=== PATIENT | male | born 1975 | race Caucasian/White ===

== ENCOUNTER 2023-01-29 09:53 | Outpatient (OUT) | payer BC, SELFPAY ==
--- NOTE | 2023-01-29 09:55 | VEIN_ITS ---
Patient: MARIMAR MARCUM. Exam Date: 01/29/2023 : 1975 Gender:M Ordering : DR José Redding . Admission #: [id number] Family : Order #: [id number] CLICK HERE TO VIEW EXAM RADIOLOGY REPORT PROCEDURE: VC EXT VENOUS REFLUX ELIDA LMTD COMPARISON: None. INDICATIONS: Pain due to varicose veins of bilateral legs I83.813 TECHNIQUE: Duplex imaging of the lower extremity to assess the deep and superficial venous system for the presence of deep or superficial venous incompetence and to document the location and severity of disease. The study includes evaluation of the great saphenous vein (GSV), anterior accessory saphenous vein (AASV) and small saphenous vein (SSV). Patient scanned in reverse Trendelenburg and standing. FINDINGS: RIGHT LOWER EXTREMITY: Saphenofemoral Junction Reflux: Yes 8.8mm 1.0 sec GSV: Diam (mm) Reflux/ Time (sec) Proximal Thigh 2.6 Yes 0.8 Mid Thigh 4.0 No Distal Thigh 3.4 No Prox Calf 1.8 No Mid Calf 2.4 Yes 0.4 Saphenopopliteal Junction Reflux: 5.7mm Yes 0.9 SSV: Proximal Calf 2.4 No Mid Calf 1.6 No AASV: Thrombi: No acute or chronic thrombus visualized Compressibility: Normal Flow: Normal Preforator: Dist/med calf 2.0mm with 0s reflux. Mid/med calf 2.4mm with 0s reflux. Tech Note: Incompetent SFJ. Patent varicose vein prox/med calf 2.2mm with 0s reflux. Patent varicose vein mid/med thigh 2.7mm with 1.0s reflux. LEFT LOWER EXTREMITY: Saphenofemoral Junction Reflux: Yes 12.3 mm 2.2 sec GSV: Diam (mm) Reflux/Time (sec) Proximal Thigh 4.0 Yes 0.7 Mid Thigh 5.9 Yes 0.8 Distal Thigh 4.6 Yes 0.5 Prox Calf 3.5 No Mid Calf 3.4 No Saphenopopliteal Junction Relux: 6.0 mm Yes 1.2 SSV: Proximal Calf 4.6 No Mid Calf 2.6 No AASV: Proximal Thigh 4.6 No Mid Thigh 2.0 No Distal Thigh Thrombi: No acute or chronic thrombus visualized Compressibility: Normal Flow: Normal [employer]: Dist/med calf 3.4mm with 0s reflux. Tech Note: Incompetent SFJ and SPJ. Patent varicose vein mid/med calf 1.7mm with 0s reflux. Patent varicose vein dist/med thigh 3.6mm with 1.1s. CONCLUSION: 1. Mild bilateral great saphenous vein reflux with saphenofemoral junction reflux 2. Bilateral saphenopopliteal junction reflux 3. Mild bilateral incompetent varicose veins. Dictated by: Riley Bowling MD on 01/29/2023 at 13:06 Approved by: Riley Bowling MD on 01/29/2023 at 13:08
== END 2023-01-29 09:54 | disposition home or self-care (01) ==
LOC: VC 09:53
PROVIDERS: PCP Family Medicine; Visit Provider Family Medicine
DX: I83.813 Varicose veins of bilateral lower extremities with pain (principal)
CPT/HCPCS: 93970